=== PATIENT | female | born 1985 | race Caucasian/White ===

== ENCOUNTER 2017-09-08 15:21 | Emergency (ER) | payer OTHER ==
[~2017-09-08] VITALS: Ht 165.1 cm; Wt 96.0 kg
[2017-09-08 15:23] VITALS: BP 132/77
== END 2017-09-08 16:58 | disposition home or self-care (01) ==
LOC: ED 16:41
DX: S76.011A Strain of muscle, fascia and tendon of right hip, initial encounter (principal); S76.911A Strain of unspecified muscles, fascia and tendons at thigh level, right thigh, initial encounter; G89.11 Acute pain due to trauma; Z90.49 Acquired absence of other specified parts of digestive tract; X58.XXXA Exposure to other specified factors, initial encounter; Y93.89 Activity, other specified; Y92.89 Other specified places as the place of occurrence of the external cause; Y99.8 Other external cause status
CPT/HCPCS: 72110; 99284

== ENCOUNTER 2017-11-17 19:12 | Emergency (ER) | payer OTHER ==
[~2017-11-17] VITALS: Ht 165.1 cm; Wt 97.0 kg
[2017-11-17] MEDS ORDERED: ONDANSETRON 2MG/ML, 2ML ONE (19:54)
[2017-11-17] MEDS ORDERED: SODIUM CHLORIDE 0.9% 1,000ML IVBOLUS ONE (20:00)
[2017-11-17] MEDS ORDERED: ONDANSETRON 2MG/ML, 2ML IVPush ONE (20:00)
[2017-11-17] MEDS ORDERED: SODIUM CHLORIDE FLUSH 10ML SYR IVF ONE (20:00)
[2017-11-17 20:03] LABS: MEAN CORPUSCULAR HGB CONC 33.9 g/dL (32.4-35.8); MEAN CORPUSCULAR VOLUME 91.5 fL (80-100); PLATELET COUNT 220 x10^3/uL (130-400); RED BLOOD COUNT 5.38 x10^6/uL (3.82-5.3); RED CELL DISTRIBUTION WIDTH 13.1 % (9.6-15.2)
[2017-11-17 20:12] LABS: ALANINE AMINOTRANSFERASE 45 U/L (12-78); ALBUMIN 3.8 g/dL (3.4-5.0); ANION GAP 10 mmol/L (5-15); CALCIUM 8.9 mg/dL (8.5-10.1); CHLORIDE 104 mmol/L (98-107)
[2017-11-17 20:15] LABS: ALKALINE PHOSPHATASE 63 U/L (45-117); BILIRUBIN,TOTAL 0.8 mg/dL (0.2-1.0); TOTAL PROTEIN 8.2 g/dL (6.4-8.2)
[2017-11-17 20:22] LABS: MD YES
[2017-11-17 20:24] LABS: <PLATELET ESTIMATE> ADEQUATE; <PLT MORPHOLOGY> NORMAL PLT MORPH; <RBC MORPHOLOGY> NORMAL; BAND#(MANUAL) 0.87 x10^3/uL; BANDS%(MANUAL) 8 % (0-7); BASOS#(MANUAL) 0.11 x10^3/uL (0-0.1); BASOS% (MANUAL) 1 % (0-1); LYMPH#(MANUAL) 0.55 x10^3/uL (1-3.4); LYMPHS% (MANUAL) 5 % (22-44); MONOS#(MANUAL) 0.33 x10^3/uL (0.3-2.7); MONOS% (MANUAL) 3 % (2-9); SEG#(MANUAL) 9.05 x10^3/uL (1.8-6.8); SEGS% (MANUAL) 83 % (42-75)
[2017-11-17 22:07] LABS: MICROSCOPIC NOT IND
[2017-11-17 22:11] LABS: CULTURE INDICATED? NO
[2017-11-17 22:25] VITALS: BP 110/69
== END 2017-11-17 23:06 | disposition home or self-care (01) ==
LOC: ED 20:36
DX: E86.0 Dehydration (principal); R11.2 Nausea with vomiting, unspecified; R19.7 Diarrhea, unspecified; Z87.891 Personal history of nicotine dependence
CPT/HCPCS: 36415; 80053; 81003; 83690; 84703; 85025; 99284

== ENCOUNTER 2019-10-03 15:27 | Emergency (ER) | payer OTHER ==
[~2019-10-03] VITALS: Ht 165.1 cm; Wt 90.4 kg
[2019-10-03 15:28] VITALS: BP 109/72
== END 2019-10-03 18:38 | disposition home or self-care (01) ==
LOC: ED 15:50
DX: R05 Cough (principal); R07.89 Other chest pain; J02.9 Acute pharyngitis, unspecified; Z87.891 Personal history of nicotine dependence; R11.10 Vomiting, unspecified
CPT/HCPCS: 71046; 99283

== ENCOUNTER 2019-11-16 12:59 | Emergency (ER) | payer OTHER ==
[~2019-11-16] VITALS: Ht 165.1 cm; Wt 88.6 kg
[2019-11-16 13:03] VITALS: BP 122/64
[2019-11-16 14:20] LABS: MICROSCOPIC INDICATED
[2019-11-16 14:22] LABS: CULTURE INDICATED? YES
[2019-11-16 14:38] LABS: HCG UR SG > 1.030 (1.003-1.030)
== END 2019-11-16 15:13 | disposition home or self-care (01) ==
LOC: ED 14:40
DX: N30.91 Cystitis, unspecified with hematuria (principal); F17.200 Nicotine dependence, unspecified, uncomplicated; Z90.49 Acquired absence of other specified parts of digestive tract
CPT/HCPCS: 81001; 81025; 87077; 87086; 87186; 99283

== ENCOUNTER 2020-05-02 16:42 | Emergency (ER) | payer OTHER ==
[~2020-05-02] VITALS: Ht 165.1 cm; Wt 85.7 kg
--- NOTE | 2020-05-02 17:20 | NUR ---
THIS IS A 35 YO F W/ C/O GENERAL ABD PAIN, BILAT FLANK PAIN AND NAUSEA X1 WEEK. PT ALSO REPORTS DIARRHEA X3 DAYS. PT DENIES VOMITING/CP/SOB/COUGH/PAIN W/ URINATION. PT RESP EVEN AND UNLABORED, CONVERSING W/O DIFFICULTY, NADN. HX:PE'S. PT AMBULATED TO THE BR W/ A STEADY GAIT. URINE CUP PROVIDED FOR SAMPLE.
[2020-05-02] MEDS ORDERED: BAYER (17:22)
[2020-05-02 17:53] LABS: MICROSCOPIC NOT IND
[2020-05-02 18:29] LABS: ALANINE AMINOTRANSFERASE 28 U/L (12-78); ALBUMIN 4.1 g/dL (3.4-5.0); ANION GAP 5 mmol/L (5-15); CALCIUM 9.5 mg/dL (8.5-10.1); CHLORIDE 104 mmol/L (98-107); CREATININE 0.91 mg/dL (0.55-1.02)
[2020-05-02 18:34] LABS: ALKALINE PHOSPHATASE 73 U/L (45-117); TOTAL PROTEIN 8.2 g/dL (6.4-8.2)
--- NOTE | 2020-05-02 18:47 | NUR ---
LAB CALLED, UNABLE TO RUN CBC. NEED TO REDRAW.
--- NOTE | 2020-05-02 18:57 | NUR ---
Report received from KELLY Odonnell. This RN to assume care.
[2020-05-02 19:09] LABS: BASOPHILS # (AUTO) 0.02 x10^3/uL (0-0.1); BASOPHILS % (AUTO) 0 % (0-1); EOSINOPHILS # (AUTO) 0.39 x10^3/uL (0-0.4); EOSINOPHILS % (AUTO) 5 % (1-7); LYMPHOCYTES # (AUTO) 1.41 x10^3/uL (1-3.4); LYMPHOCYTES % (AUTO) 19 % (22-44); MD NO; MEAN CORPUSCULAR HEMOGLOBIN 31.5 pg (27.0-34.8); MEAN CORPUSCULAR HGB CONC 33.6 g/dL (32.4-35.8); MEAN CORPUSCULAR VOLUME 93.8 fL (80-100); MEAN PLATELET VOLUME 8.6 fL (7.4-10.4); MONOCYTES # (AUTO) 0.24 x10^3/uL (0.2-0.8); MONOCYTES % (AUTO) 3 % (2-9); NEUTROPHILS # (AUTO) 5.21 x10^3/uL (1.8-6.8); NEUTROPHILS % (AUTO) 72 % (42-75); PLATELET COUNT 215 x10^3/uL (130-400); RED BLOOD COUNT 4.89 x10^6/uL (3.82-5.3); RED CELL DISTRIBUTION WIDTH 12.9 % (9.6-15.2)
--- NOTE | 2020-05-02 19:49 | NUR ---
Patient to be discharged. Patient COVID r/o. Contacted registration prior to discharge.
[2020-05-02 19:55] VITALS: BP 108/70
--- NOTE | 2020-05-02 20:05 | NUR ---
Discharge instructions given. All questions and concerns addressed. Patient ambulatory with a steady gait. Belongings with patient.
== END 2020-05-02 20:07 | disposition home or self-care (01) ==
LOC: ED 19:50
DX: R10.84 Generalized abdominal pain (principal); Z20.828 Contact with and (suspected) exposure to other viral communicable diseases; J02.9 Acute pharyngitis, unspecified; R19.7 Diarrhea, unspecified; R51 Headache; M79.10 Myalgia, unspecified site
CPT/HCPCS: 36415; 74021; 80053; 81003; 83690; 84703; 85025; 99284; U0001